=== PATIENT | female | born 1940 | race Caucasian/White ===

== ENCOUNTER 2017-01-23 04:39 | Inpatient (IN) ==
[2017-01-23] MEDS ORDERED: DILTIAZEM 50 MG/10 ML VIAL IV ONE (05:09)
[2017-01-23] MEDS ORDERED: FUROSEMIDE 100 MG/10 ML VIAL IV STA (05:16)
[2017-01-23] MEDS ORDERED: DILTIAZEM 50 MG/10 ML VIAL IV STA (05:16)
--- NOTE | 2017-01-23 05:22 | Emergency Department Note ---
Arrival - Arrival ED Nursing Triage Note: Patient to triage complaining of shortness of breath. Patient states that Dr. Gramajo gave her diltiazem she thinks that it has blue dye in it and caused a rash. She called Dr. Gramajo and he changed her medication to verapamil she states that she could not take it either because it made her feel bad. She states she does not take her lasix either because it is to hard on her body. Patient was fired by . She states she use to see DR. Celeste but has not seen him in a while. Mode of Arrival: Ambulatory Limitations: No Limitations Source: Patient - History of Present Illness Onset (ago): day(s) (Patient presents several days post insidious onset of symptoms) <Michael Matthews - Last Filed: 01/23/17 05:19> <Bill Green - Last Filed: 01/23/17 07:16> - Arrival Chief Complaint: Shortness of Breath Stated Complaint: sob, Time Seen by Provider: 01/23/17 05:16 - History of Present Illness HPI Narrative: This 76-year-old white female well-known to the institution with chronic atrial fibrillation and congestive failure presents with once again complaints of rapid heartbeat and shortness of breath. She has been in a continuous running lynch with Dr. Gramajo as concerns her medications and alleged drug allergies and inability to take medication. Basically she has not been compliant whatsoever and has fallen back into symptomatic congestive failure with tachyarrhythmias. She denies any chest pain in association with this. Despite her problems she appears quite comfortable at this point in time. (Michael Matthews) Allergies/Adverse Reactions: Allergies Allergy/AdvReac Type Severity Reaction Status Date / Time Penicillins Allergy RASH Verified 01/23/17 04:50 Hydromorphone [From Dilaudid] AdvReac Nausea Verified 01/23/17 04:50 Home Medications: Home Medications Medication Instructions Recorded Confirmed Type Apixaban [Eliquis] 5 mg PO BID #60 tablet 06/07/15 01/23/17 Rx Aspirin EC Tab 81 mg PO DAILY #30 tablet 06/07/15 01/23/17 Rx Furosemide Tab [Lasix Tab] 40 mg PO DAILY #30 tablet 06/07/15 01/23/17 Rx Metoprolol Tartrate Tab [Lopressor 25 mg PO BID #60 tablet 06/07/15 01/23/17 Rx Tab] Verapamil HCl [Verapamil ER Tab] 120 mg PO DAILY 01/23/17 01/23/17 History Review of System - Review of System 12 point system: reviewed and no additional remarkable complaints except as stated - Review of System Constitutional: Present: as per HPI Respiratory: Present: as per HPI Cardiovascular: Present: as per HPI <Michael Matthews W - Last Filed: 01/23/17 05:19> Medical,Surgical,& Family Hx - Medical History Cardio: History of: Cardiac Dysrhythmia (A-Fib), Hypertension Endocrine: No history of: Diabetes Mellitus (IDDM), Diabetes Mellitus (NIDDM) Respiratory: No history of: Asthma, Bronchitis, Pneumonia Renal: No history of: Renal Failure, Renal Problems Genitourinary: History of: Problems (uterine prolapse) Gastrointestinal: No history of: Diverticulitis/ Diverticulosis, Gastrointestinal Bleed, Liver Problems, GI Problems Reproductive: History of: Reproductive Problems (UTERINE PROLAPSE) - Surgical History Cardiac Surgeries: Patient Denies: Femoral-Popliteal Bypass Graft, Cardiac Catheterization, Cardiac Surgery, Carotid Endarterectomy, Internal Defibrillator, Vascular Access Devices Thoracic Surgeries: Patient denies;: Kidney (Renal Surgery), Lithotripsy, Nephrectomy, Organ Transplant, Lobectomy Neurologic Surgeries: Patient denies: Neurologic Surgery HEENT Surgeries: Patient denies: Carotid Endarterectomy, Eye Surgery, Tonsilectomy & Adenoidectomy Abdominal Surgeries: Patient denies: Abdominal Surgery, Appendectomy, Cholecystectomy, Colonoscopy , Gastric Bypass Surgery, EGD, Hernia Repair, Splenectomy Reproductive Surgeries: Patient denies;: Cystoscopy, Genitourinary Surgery, Gynecologic Surgery - Family History Family History: Reports;: Family Cancer (brother and sister), Family Heart Disease (mother) - Social History Smoking Status: Never smoker Frequency of Alcohol Use: None Type of Drug Use: None <Michael Matthews W - Last Filed: 01/23/17 05:19> Exam <Michael Matthews W - Last Filed: 01/23/17 05:19> <Bill Green - Last Filed: 01/23/17 07:16> Physical Examination: GENERAL: Well developed, well nourished elderly white female in no acute distress. HEENT: Normocephalic. No trauma. Moist mucous membranes. EOMI. PERRLA. ENT NML NECK: Supple. No adenopathy. CARDIAC: Irregular. No murmurs. Heart rate 141 CHEST: Clear to auscultation. No respiratory distress. O2 sat 96% ABDOMEN: Soft. Nontender. Active bowel sounds. EXTREMITIES: No trauma. Normal ROM. No pedal edema. SKIN: No diaphoresis. Papular red rash that resembles insect bite NEURO: Alert. Oriented 3. Motor, sensory, vibratory intact. No focal deficits. (Michael Matthews) Vital Signs: Vital Signs Temperature 96.5 F L 01/23/17 04:41 Pulse Rate 102 H 01/23/17 06:02 Respiratory Rate 11 L 01/23/17 06:02 Blood Pressure 156/112 01/23/17 06:02 O2 Sat by Pulse Oximetry 97 01/23/17 06:02 Course <Michael Matthews - Last Filed: 01/23/17 05:19> - Consultations Time: 07:05 <Bill Green - Last Filed: 01/23/17 07:16> Course Narrative: Care assumed from Dr. Matthews at 6 AM. (Bill Green) - Consultations Consultation #1: Discussed with Dr. Shepard. Patient will be admitted to his service. Initial orders written for him. He will assume patient's care upon patient's arrival to the [facility]. (Bill Green) Results <Michael Matthews - Last Filed: 01/23/17 05:19> - Labs CBC & BMP: 01/23/17 04:57 01/23/17 04:57 Lab Results: I have reviewed the patients labs - Diagnostic Findings Procedure: Chest x-ray: image reviewed by me (Cardiomegaly with increased pulmonary markings bilaterally consistent with congestive heart failure.) <Bill Green - Last Filed: 01/23/17 07:16> - Labs Labs: Laboratory Tests 01/23/17 01/23/17 04:57 04:57 Troponin I 0.385 H B-Natriuretic Peptide 758 H (Bill Green) - Impressions EKG atrial fibrillation with rapid ventricular response at 140. Normal QRS duration. Diffuse nonspecific ST changes with evidence of old septal infarct versus poor R-wave progression anteriorly. (Michael Matthews) Disposition <Michael Matthews - Last Filed: 01/23/17 05:19> Case discussed with: patient Time of Disposition: 07:16 <Bill Green - Last Filed: 01/23/17 07:16> Clinical Impression: Atrial fibrillation with RVR, Congestive heart failure, Noncompliance with medications Disposition: Still a Patient Condition: Stable
[2017-01-23 05:28] LABS: Basophils % 0.5 % (0.0-0.8); Eosinophils # 0.1 10*3/uL (0.0-0.87); Eosinophils % 1.5 % (0.00-10.9); Hematocrit 41.7 VOL% (35.7-47.0); Immature Granulocytes % 0.6 %; Immature Granulocytes Absolute 0.05 #; Lymphocytes % 24.8 % (21.3-54.2); Mean Corpuscular HGB Conc 33.6 GM/DL (32-36); Mean Corpuscular Hemoglobin 29 PG (27-34); Mean Corpuscular Volume 86.2 FL (87-102); Mean Platelet Volume 11.8 FL (9.6-12.0); Monocytes # 0.9 10*3/uL (0.11-0.8); Monocytes % 10.7 % (1.7-12.7); Neutrophils % 61.9 % (38.7-73.9); Platelet Count 258 T/CUMM (130-400); Red Blood Count 4.84 MC/CUMM (3.8-5.5); Red Cell Distribution Width 13.7 % (9.3-17.3)
[2017-01-23] MEDS ORDERED: FUROSEMIDE 40 MG/4 ML VIAL ONE (05:32)
[2017-01-23 05:38] LABS: INR 1.2; PT Patient Result 12.6 SECS; Partial Thromboplastin Time 31.9 SECS (0-40)
[2017-01-23 05:59] LABS: Alanine Aminotransferase 37 U/L (13-56); Albumin 3.9 G/DL (3.4-5.0); Alkaline Phosphatase 121 U/L (45-117); Aspartate Amino Transferase 42 U/L (0-37); Blood Urea Nitrogen 19 MG/DL (7-18); Calcium 8.9 MG/DL (8.5-10.1); Glucose 169 MG/DL (74-106); Osmolality,Calculated 278.8 MOS/KG (273-304); Potassium 4.6 MMOL/L (3.5-5.1); Sodium 137 MMOL/L (136-145); Total Protein 7.6 G/DL (6.4-8.3)
[2017-01-23 06:05] LABS: Troponin I Only 0.385 NG/ML (0.00-0.045)
--- NOTE | 2017-01-23 08:02 | EKG Report ---
Stationary ECG Study [facility] ER Test Date: 01/23/2017 4:53:53 AM Pat Name: HOA TORRES Department: Room: Gender: F Sports Physiologist: Sylvie : 1940 Requested by: Michael Olivia Order Number: [id number] Reading MD: JOSE ENG Intervals [place] Rate: 141 P: 999 GA: 0 QRS: -60 QRSD: 101 T: 88 QT: 286 QTc: 368 Interpretive Statements ATRIAL FIBRILLATION WITH RAPID VENTRICULAR RESPONSE At 141 bpm CONSISTENT WITH PULMONARY DISEASE LEFT ANTERIOR FASCICULAR BLOCK GA WP NST Electronically Signed On 01-27-17 15:52:17 CDT by JOSE ENG [email or web address]
--- NOTE | 2017-01-23 08:14 | XRay Report ---
XR chest 1V portable Indication: SOB Comparison: Chest x-ray dated June 05, 2015 Technique: Single frontal view of the chest Findings: Continued moderate to marked cardiomegaly. There is interval progressed prominence of bilateral interstitial lung markings which may reflect progressed interstitial lung disease, interstitial pulmonary edema, or interstitial pneumonia. Osseous and surrounding soft tissue structures appear grossly unchanged. IMPRESSION: As above. PROCEDURE INTERPRETED AT [facility] DEPARTMENT OF RADIOLOGY Final Report Signed by: Dr Regino De Jesus
[2017-01-23] MEDS: DILTIAZEM INJ 125 MG in SODIUM CHLORIDE 0.9% 100 ML IV SCH (08:25)
[2017-01-23] MEDS ORDERED: MAGNESIUM SULF RIDER 2 GM in PREMIX 1 EACH IV PRN (08:59)
[2017-01-23] MEDS ORDERED: SODIUM CHLORIDE 0.9% 1,000 ML IV SCH (08:59)
[2017-01-23] MEDS ORDERED: MAGNESIUM SULF RIDER 4 GM in PREMIX 1 EACH IV PRN (08:59)
[2017-01-23] MEDS ORDERED: ENOXAPARIN 40 MG/0.4 ML SYRINGE SUBCUT SCH (09:00)
--- NOTE | 2017-01-23 11:18 | Cardiology History & Physical ---
<Caitlyn Riley E - Last Filed: 01/23/17 12:14> Assessment and Plan - Time spent with patient Time spent with patient: Greater than 30 minutes (due to assessment, plan, lengthy discussion regarding complance with therapy, and documentation) (1) Atrial fibrillation with RVR Status: Acute Assessment and plan: SEE PLAN OF CARE BELOW. Current Visit: Yes (2) Shortness of breath Status: Acute Assessment and plan: SEE PLAN OF CARE BELOW. Current Visit: Yes (3) Hyperlipidemia Status: Chronic Assessment and plan: SEE PLAN OF CARE BELOW. Current Visit: Yes (4) Hypertension Status: Chronic Assessment and plan: SEE PLAN OF CARE BELOW. Current Visit: No (5) Noncompliance with medications Status: Chronic Assessment and plan: SEE PLAN OF CARE BELOW. Current Visit: Yes History of Present Illness Chief complaint: SOB History of present illness: ELECTRIC RANGE PREPARER: DR. COOPER PCP: DR. MONTES Ms. Garay is a 76 year old female with a history of chronic atrial fibrillation, cardiomyopathy, hypertension, hyperlipidemia, and medication noncompliance. Risk factors are significant for: age, sedentary lifestyle, hypertension, hyperlipidemia. She is a lifetime non-smoker and non-drinker. She is not followed routinely by Dr. Cooper and only sees him "when she feels bad." She is reportedly statin intolerant and has taken herself off of that medication as well as her Lasix that was prescribed to her. Ms. Garay presented to the emergency room this morning with complaints of shortness of breath that has worsened over the past week. She tells me this is worse with agitation and exertion. She sleeps propped on a wedge pillow at night. She also complains of frequent palpitations with her heart racing. She denies chest pain, diaphoresis, nausea, vomiting, diarrhea, or syncope. She does admit to recently feeling dizzy/lightheaded when she had been standing for long periods. She denies edema. She last saw Dr. Cooper in the clinic on 12/21/15 and at that time, he discussed recent echocardiogram results with her and recommended she have a right and left heart catheterization for her complaint of chest tightness and her pulmonary hypertension but she declined. Her echocardiogram on 12/11/15 revealed an EF of 55%, moderate tricuspid insufficiency, moderate to severe pulmonary hypertension, moderate mitral regurgitation, and atrial fibrillation with biatrial enlargement. She has been on Cardizem CD for quite some time and has recently called the clinic complaining of a rash she developed and thinks it was caused by the Diltiazem and requested a medication change. She was given a prescription for Verapamil but took 2 doses and reported "it made her feel bad, " so she stopped taking it. She has now not taken Diltiazem or verapamil for the past 3 weeks. She has been taking her Metoprolol BID but reports she sometimes takes a whole 25mg pill instead of the half that is prescribed if her heart rate is a little elevated. She also tells me she may occasionally take one of her daughter's doses of Lisinopril when her blood pressure goes up. She is also prescribed Eliquis 5mg PO BID but reports she can only take one daily due to vaginal prolapse with bleeding. Since she has been off of the diltiazem for the past 2 weeks, she has continued to have a mild rash with some itching. Her chest x-ray is suggestive of interstitial pulmonary edema vs progressive interstitial lung disease or interstitial pneumonia. She was given a dose of IV Lasix in the ER and her lungs actually sound fairly clear on exam. Her BNP was 758 upon admission with creatinine 1.3. Her troponin was also noted to be mildly elevated at 0.385 with CPK 208 and CK-MB 4.3. Dr. Shepard to follow with further plan and addendum. ASSESSMENT/PLAN: 1. ATRIAL FIBRILLATION W/ RVR - Has received bolus of IV cardizem in the ER. She has not taken her Diltiazem for 2 weeks. Will resume home dosage and continue to monitor. She is noted to have some minimally elevated cardiac biomarkers which could be due to her tachycardia but we will continue to cycle these and monitor for trend. 2. SHORTNESS OF BREATH - Likely related to her tachycardia and AF w/ RVR. 3. HYPERLIPIDEMIA - Will check lipid panel in AM. 4. HYPERTENSION - Will resume home medications and make adjustments as needed. Per her blood pressure log, her pressures have been consistently elevated for the past several weeks. Stressed the importance of follow up and adherence to medication regimen. 5. NONCOMPLIANCE WITH MEDICATIONS - Stressed the importance of compliance with medications prescribed by her physicians. Instructed her not to self-dose or change medication regimen without discussing with a physician. Counseled her on the potentially harmful effects of taking medications not prescribed to her. Home Medications Medication Instructions Recorded Confirmed Type Apixaban [Eliquis] 5 mg PO BID #60 tablet 06/07/15 01/23/17 Rx Aspirin EC Tab 81 mg PO DAILY #30 tablet 06/07/15 01/23/17 Rx Metoprolol Tartrate Tab [Lopressor 25 mg PO BID #60 tablet 06/07/15 01/23/17 Rx Tab] Verapamil HCl [Verapamil ER Tab] 120 mg PO DAILY 01/23/17 01/23/17 History dilTIAZem HCl [Diltiazem ER (24 120 mg PO DAILY 01/23/17 01/23/17 History hr)] Allergies Allergy/AdvReac Type Severity Reaction Status Date / Time Penicillins Allergy RASH Verified 01/23/17 04:50 Hydromorphone [From Dilaudid] AdvReac Nausea Verified 01/23/17 04:50 Review of systems: - Constitutional: Present: itching, As per HPI. Absent: anorexia, chills, daytime sleepiness, excessive sweating, fever(s), frequent falls, headache(s), increased appetite, lethargy, malaise, night sweats, stops breathing during sleep, weakness, weight gain, weight loss, fatigue. - EENT Eyes: Present: As per HPI. Absent: blurry vision, diplopia, loss of vision Ears: Present: As per HPI. Absent: decreased hearing, ear discharge, ear pain Nose, mouth and throat: Present: As per HPI. Absent: dysphagia, epistaxis, headache(s), hoarseness, lip swelling, nasal congestion, neck mass, neck pain, sinus pressure, sore throat, throat swelling, tongue swelling, vertigo - Cardiovascular: Present: dyspnea, dyspnea on exertion, orthopnea, palpitations , lightheadedness, as per HPI. Absent: chest pain at rest, chest pain with activity, edema, claudication, diaphoresis, radiating jaw, neck or arm pain, PND - Respiratory: Present: dyspnea, dyspnea on exertion, as per HPI. Absent: cough , hemoptysis, wheezing, snoring, pain on inspiration - Gastrointestinal: Present: constipation, hemorrhoids, As per HPI. Absent: abdominal pain, bloating, change in bowel habits, diarrhea, heartburn, hematemesis, hematochezia, loose stools, melena, nausea, vomiting - Genitourinary: Present: As per HPI. Absent: difficulty urinating, dysuria, flank pain, hematuria, nocturia, urinary frequency, urinary incontinence - Musculoskeletal: Present: low back pain, As per HPI. Absent: arthralgias, joint swelling, limited range of motion, muscle cramps, muscle weakness, myalgias - Neurological: Present: dizziness, As per HPI. Absent: abnormal gait, abnormal speech, behavioral changes, confusion, convulsions, disequilibrium, focal weakness, frequent falls, headache(s), memory loss, numbness, paresthesias, radicular pain, syncope, tremor(s) - Psychiatric: Present: As per HPI. Absent: anxiety, confusion, depression, panic attacks - Endocrine: Present: As per HPI. Absent: cold intolerance, fatigue, heat intolerance, polydipsia, polyphagia - Hematologic/Lymphatic: Present: As per HPI. Absent: easy bleeding, easy bruising, lymphadenopathy Medical,Surgical,& Family Hx - Medical History Cardio: History of: Cardiac Dysrhythmia (A-Fib), Hypertension Endocrine: No history of: Diabetes Mellitus (IDDM), Diabetes Mellitus (NIDDM) Respiratory: No history of: Asthma, Bronchitis, Pneumonia Renal: No history of: Renal Failure, Renal Problems Genitourinary: History of: Problems (uterine prolapse) Gastrointestinal: No history of: Diverticulitis/ Diverticulosis, Gastrointestinal Bleed, Liver Problems, GI Problems Reproductive: History of: Reproductive Problems (UTERINE PROLAPSE) - Surgical History Cardiac Surgeries: Patient Denies: Femoral-Popliteal Bypass Graft, Cardiac Catheterization, Cardiac Surgery, Carotid Endarterectomy, Internal Defibrillator, Vascular Access Devices Thoracic Surgeries: Patient denies;: Kidney (Renal Surgery), Lithotripsy, Nephrectomy, Organ Transplant, Lobectomy Neurologic Surgeries: Patient denies: Neurologic Surgery HEENT Surgeries: Patient denies: Carotid Endarterectomy, Eye Surgery, Tonsilectomy & Adenoidectomy Abdominal Surgeries: Patient denies: Abdominal Surgery, Appendectomy, Cholecystectomy, Colonoscopy , Gastric Bypass Surgery, EGD, Hernia Repair, Splenectomy Reproductive Surgeries: Patient denies;: Cystoscopy, Genitourinary Surgery, Gynecologic Surgery - Family History Family History: Reports;: Family Cancer (brother and sister), Family Heart Disease (mother) - Social History Smoking Status: Never smoker Frequency of Alcohol Use: None Type of Drug Use: None Marital Status: Lives With:: Children Functional capacity: independent ambulation Cardiology Physical Exam - Constitutional Vitals: Vital Signs Temp Pulse Resp BP Pulse Ox 96.8 F L 66 18 155/83 94 L 01/23/17 09:07 01/23/17 09:07 01/23/17 09:07 01/23/17 09:07 01/23/17 09:07 Intake and Output 01/22/17 01/23/17 01/23/17 22:59 06:59 14:59 Other: Weight 162 lb Patient Weight 01/24/17 06:59 Weight 162 lb Exam: General appearance: Pleasant and cooperative. Normal weight, no acute distress. - Head Head exam: Present: normal inspection, normocephalic, atraumatic. Absent: hematoma, laceration - Eye Eye exam: Present: EOMI. Absent: conjunctival injection, nystagmus, periorbital swelling, scleral icterus, laceration to eyelids Pupils: Present: PERRL. Absent: constricted, dilated, fixed, irregular, unequal - ENT ENT exam: Present: normal exam, normal external ear exam - Neck Neck exam: Present: normal inspection. Absent: lymphadenopathy, meningismus, tenderness, thyromegaly - Respiratory Respiratory exam: Present: clear to auscultation bilaterally. Absent: accessory muscle use, chest wall tenderness - Cardiovascular Cardiovascular exam: Present: Irregular rate and rhythm, tachycardia. Absent: carotid bruit, gallop, JVD, rubs, murmur - GI/Abdominal GI/Abdominal exam: Present: normal bowel sounds, soft. Absent: distended, firm , guarding, hernia, mass, tenderness, rebound. - Extremities Exam Extremities exam: Present: normal inspection, normal capillary refill. Upper extremity pulses 2+. Lower extremity pulses 2+. Absent: calf tenderness, edema -Musculoskeletal Exam Musculoskeletal: Present: No Fluid Collection, No Pain, Normal Range of Motion - Back Exam Back exam: Present: normal inspection. Absent: muscle spasm, vertebral tenderness - Neurological Exam Neurological exam: Present: alert, oriented X3, grossly intact without resting or essential tremor - Psychiatric Psychiatric exam: Present: normal affect, normal mood - Skin Skin exam: Present: normal color, warm, dry, intact, slight maculopapular rash to abdomen, buttocks, and back with few scabbed areas from repetitive scratching. Absent: cyanosis, diaphoretic, urticaria Result/EKG - Labs CBC & BMP: 01/23/17 04:57 01/23/17 04:57 Lab Results: I have reviewed the past 24 hour labs - EKG EKG results: interpreted by me EKG shows: atrial fibrillation (with rapid ventricular response) <Mike Shepard - Last Filed: 01/23/17 14:19> History of Present Illness History of present illness: Patient personally interviewed and examined and chart reviewed. I discussed this case with Caitlyn Riley SENIOR WATER RESOURCES ENGINEER. Agree with evaluation and assessment and plan. In summation in addition Ms. Garay is a 76 year old female who has a followed by Dr. Cooper previously. The patient's been noncompliant with follow-up and adjust her medicines according to her decisions and however she feels. She recently was placed on verapamil since she was complaining of itching that she thought was from the diltiazem. She took 2 doses of verapamil as already noted and thought she felt bad secondary to that. She did have a diltiazem to taking his place and now is presented with atrial fibrillation with RVR. She has chronic atrial fibrillation. She also has a history of cardiomyopathy. Much of her issues and problems as her noncompliance. At present we will adjust her medications to control her heart racing basically put her back on the diltiazem. Is obvious that the diltiazem is not the cause of her itching especially since she's been off of it is had no improvement. Once we have anticoagulation. Her heart rates managed she can be discharged to follow-up with Dr. Cooper. We will continue her anticoagulation. Her exam reveals no acute changes. Her lungs are clear, cardiovascular irregular but tachycardic. No gross murmur. She's got no edema. Neurologically she is intact. Cardiology Physical Exam - Constitutional Vitals: Vital Signs Temp Pulse Resp BP Pulse Ox 97 F L 113 H 20 142/88 94 L 01/23/17 11:41 01/23/17 12:19 01/23/17 11:41 01/23/17 12:00 01/23/17 11:41 Intake and Output 01/22/17 01/23/17 01/23/17 23:59 07:59 15:59 Other: Weight 73.482 kg Patient Weight 01/23/17 23:59 Weight 73.482 kg Result/EKG - Labs CBC & BMP: 01/23/17 04:57 01/23/17 04:57 Labs: Laboratory Results - last 24 hr 01/23/17 12:27 Total Creatine Kinase 170 CK-MB (CK-2) 4.0 H Troponin I 0.372 H
[2017-01-23] MEDS ORDERED: diphenhydrAMINE CAP 25 MG CAPSULE PO PRN (11:41)
[2017-01-23] MEDS ORDERED: HYDROCORTISONE 1% CREAM 28 GM TUBE TOP PRN (11:41)
[2017-01-23] MEDS ORDERED: POTASSIUM CHLORIDE 20 MEQ TABLET PO PRN (12:14)
[2017-01-23] MEDS: APIXABAN 5 MG TABLET PO SCH ×2 (12:18→20:31)
[2017-01-23] MEDS: METOPROLOL TARTRATE 25 MG TABLET PO SCH ×2 (12:18→20:31)
[2017-01-23] MEDS: ASPIRIN EC 81 MG TABLET PO SCH (12:18)
[2017-01-23] MEDS: DILTIAZEM CD 120 MG CAPSULE PO SCH (12:19)
[2017-01-23 13:13] LABS: Troponin I Only 0.372 NG/ML (0.00-0.045)
[2017-01-23 18:50] LABS: Troponin I Only 0.376 NG/ML (0.00-0.045)
[2017-01-24 01:06] LABS: Troponin I Only 0.386 NG/ML (0.00-0.045)
[2017-01-24] MEDS: DILTIAZEM INJ 125 MG in SODIUM CHLORIDE 0.9% 100 ML IV SCH (05:38)
[2017-01-24 06:03] LABS: Basophils # 0.1 10*3/uL (0.0-0.2); Basophils % 0.7 % (0.0-0.8); Eosinophils # 0.3 10*3/uL (0.0-0.87); Eosinophils % 3.5 % (0.00-10.9); Hematocrit 41.1 VOL% (35.7-47.0); Hemoglobin 13.5 GM/DL (12.0-16.0); Immature Granulocytes % 0.3 %; Immature Granulocytes Absolute 0.02 #; Lymphocytes # 1.7 10*3/uL (1.4-4.0); Lymphocytes % 23.1 % (21.3-54.2); Mean Corpuscular HGB Conc 32.8 GM/DL (32-36); Mean Corpuscular Hemoglobin 28 PG (27-34); Mean Corpuscular Volume 84.7 FL (87-102); Mean Platelet Volume 11.9 FL (9.6-12.0); Monocytes # 0.8 10*3/uL (0.11-0.8); Neutrophils # 4.4 10*3/uL (1.4-7.4); Neutrophils % 61.4 % (38.7-73.9); Platelet Count 252 T/CUMM (130-400); Red Blood Count 4.85 MC/CUMM (3.8-5.5); Red Cell Distribution Width 13.6 % (9.3-17.3); White Blood Count 7.2 T/CUMM (4-12)
[2017-01-24 06:32] LABS: Calcium 8.6 MG/DL (8.5-10.1); Magnesium 2.3 MG/DL (1.8-2.4); Osmolality,Calculated 280.5 MOS/KG (273-304); Potassium 3.7 MMOL/L (3.5-5.1); Risk Ratio 5.05; VLDL CHOLESTEROL 24.2 MG/DL
--- NOTE | 2017-01-24 09:07 | Physician Query Form ---
CLICK EDIT DOCUMENT TO SELECT QUERY ANSWER --> OK --> SIGN Danielle Springer RN Clinical Appliance Sales Associate W) [phone] (f) [phone] [email or web address] PROVIDERS: Make your selection(s) from the choices in EACH section by typing an "x" and enter comments in the comment section. Please use your independent medical judgment in providing your response. This request does not imply that any particular answer is desired or expected. CLINICAL INDICATORS: (Providers should not edit this section) Based on documentation of "CHF. Her echocardiogram on 12/11/15 revealed an EF of 55%", [id number], treated with IV Lasix. Please provide further specificity regarding CHF. ACUITY: ( ) Acute ( ) Chronic ( ) Acute on Chronic ( ) Clinicallly unable to determine TYPE: ( ) Systolic (HFrEF - heart failure with reduced systolic function/EF) ( ) Diastolic (HFpEF - heart failure with preserved systolic function/EF) ( ) Combined Systolic/Diastolic ( ) Other, please specify: ( ) Clinically unable to determine ( ) The patient does NOT have CHF COMMENTS: No where in my H&P or progress notes was "CHF" a documented diagnosis. I'm unsure why I'm receiving this query. -Caitlyn Riley, WATER/WASTEWATER PROJECT MANAGER-BC Use of terms such as suspected, likely, or probable (associated with a specific diagnosis that is being evaluated, monitored, or treated as if it exists) are acceptable and can be restated in the discharge summary if not ruled out. MTDD
[2017-01-24] MEDS: DILTIAZEM CD 120 MG CAPSULE PO SCH (09:29)
[2017-01-24] MEDS: ASPIRIN EC 81 MG TABLET PO SCH (09:29)
[2017-01-24] MEDS: METOPROLOL TARTRATE 25 MG TABLET PO SCH (09:30)
[2017-01-24] MEDS: APIXABAN 5 MG TABLET PO SCH (09:30)
--- NOTE | 2017-01-24 11:16 | Cardiology Progress Note ---
<Caitlyn Riley E - Last Filed: 01/24/17 10:59> Assessment and Plan - Time spent with patient Time spent with patient: Greater than 30 minutes (due to discussion regarding medication changes, compliance, assessment, plan, and documentation) (1) Atrial fibrillation with RVR Status: Acute Assessment and plan: SEE PLAN OF CARE BELOW. Current Visit: Yes (2) Shortness of breath Status: Acute Assessment and plan: SEE PLAN OF CARE BELOW. Current Visit: Yes (3) Hyperlipidemia Status: Chronic Assessment and plan: SEE PLAN OF CARE BELOW. Current Visit: Yes (4) Hypertension Status: Chronic Assessment and plan: SEE PLAN OF CARE BELOW. Current Visit: No (5) Noncompliance with medications Status: Chronic Assessment and plan: SEE PLAN OF CARE BELOW. Current Visit: Yes Cardiology - PN: Subj Interval history: DERMATOLOGY PHYSICIAN: DR. COOPER PCP: DR. MONTES Ms. Garay is a 76 year old female with a history of chronic atrial fibrillation, cardiomyopathy, hypertension, hyperlipidemia, and medication noncompliance. Risk factors are significant for: age, sedentary lifestyle, hypertension, hyperlipidemia. She is a lifetime non-smoker and non-drinker. She is not followed routinely by Dr. Cooper and only sees him "when she feels bad." She is reportedly statin intolerant and has taken herself off of that medication as well as her Lasix that was prescribed to her. Ms. Garay presented to the emergency room on 01/23/17 with complaints of shortness of breath that has worsened over the past week. She was found to be in atrial fibrillation with rapid ventricular response. Clinically, she does not appear to be in overt heart failure. She has been on Diltiazem and Metoprolol for her chronic afib for quite some time and adjusts her medications at home herself as she sees fit and according to how she feels. She was recently changed to Verapamil after calling the clinic reporting a rash she thought was caused by the Diltiazem. I do not think this has caused her rash as she has not taken it in the past 2 weeks and her itching has not improved. We have started her on some hydrocortisone cream for this and placed her back on diltiazem. We increased her metoprolol dose to 25mg PO BID as well. She continues to have elevated heart rates on these medications. She is very anxious to go home, but I explained to her we needed to have her heart rate under better control. She does have an appointment with Dr. Cooper on 01/30/17 and I stressed to her the importance of keeping this appointment and not adjusting her medications or stopping her medications herself. She states "I'll try." Dr. Shepard to follow with further plan and addendum. ASSESSMENT/PLAN: 1. ATRIAL FIBRILLATION W/ RVR -She has been started back on her Diltiazem and metoprolol. Her rates remain slightly above normal range. We will adjust her medications and try to better control her heart rate. 2. SHORTNESS OF BREATH - Likely related to her tachycardia and AF w/ RVR. She has had some flat troponins. Her SOB is likely related to her AF w/ RVR and not ACS. 3. HYPERLIPIDEMIA - Triglycerides 121, cholesterol 197, LDL 149, HDL 39. 4. HYPERTENSION -Her home medications have been resumed. She has had several elevated blood pressures and we will adjust her medications to better control this. Per her blood pressure log, her pressures have been consistently elevated for the past several weeks. Stressed the importance of follow up and adherence to medication regimen. 5. NONCOMPLIANCE WITH MEDICATIONS - Stressed the importance of compliance with medications prescribed by her physicians. Instructed her not to self-dose or change medication regimen without discussing with a physician. Counseled her on the potentially harmful effects of taking medications not prescribed to her. Exam (Progress Note) - Constitutional Vitals: Period Temp Pulse Resp BP Sys/Bradley Pulse Ox Last 24 Hr 97 F-98.2 F 66-120 16-21 126-191/67-93 93-100 Exam: General appearance: Pleasant and cooperative. Normal weight, no acute distress. - Head Head exam: Present: normal inspection, normocephalic, atraumatic. Absent: hematoma, laceration - Eye Eye exam: Present: EOMI. Absent: conjunctival injection, nystagmus, periorbital swelling, scleral icterus, laceration to eyelids Pupils: Present: PERRL. Absent: constricted, dilated, fixed, irregular, unequal - ENT ENT exam: Present: normal exam, normal external ear exam - Neck Neck exam: Present: normal inspection. Absent: lymphadenopathy, meningismus, tenderness, thyromegaly - Respiratory Respiratory exam: Present: clear to auscultation bilaterally. Absent: accessory muscle use, chest wall tenderness - Cardiovascular Cardiovascular exam: Present: Irregular rate and rhythm, tachycardia. Absent: carotid bruit, gallop, JVD, rubs, murmur - GI/Abdominal GI/Abdominal exam: Present: normal bowel sounds, soft. Absent: distended, firm , guarding, hernia, mass, tenderness, rebound. - Extremities Exam Extremities exam: Present: normal inspection, normal capillary refill. Upper extremity pulses 2+. Lower extremity pulses 2+. Absent: calf tenderness, edema -Musculoskeletal Exam Musculoskeletal: Present: No Fluid Collection, No Pain, Normal Range of Motion - Back Exam Back exam: Present: normal inspection. Absent: muscle spasm, vertebral tenderness - Neurological Exam Neurological exam: Present: alert, oriented X3, grossly intact without resting or essential tremor - Psychiatric Psychiatric exam: Present: normal affect, normal mood - Skin Skin exam: Present: normal color, warm, dry, intact, slight maculopapular rash to abdomen, buttocks, and back with few scabbed areas from repetitive scratching. Absent: cyanosis, diaphoretic, urticaria Result/EKG - Labs CBC & BMP: 01/24/17 05:02 01/24/17 05:02 Lab Results: I have reviewed the past 24 hour labs Labs: Laboratory Results - last 24 hr 01/23/17 01/23/17 01/24/17 12:27 18:00 00:24 WBC RBC Hgb Hct MCV MCH MCHC RDW Plt Count MPV Neut % (Auto) Lymph % (Auto) [place] % (Auto) Eos % (Auto) Baso % (Auto) Neut # (Auto) Lymph # (Auto) [place] # (Auto) Eos # (Auto) Baso # (Auto) Immature Gran % Nucleated RBC % Immature Gran # Nucleated RBCs # Sodium Potassium Chloride Carbon Dioxide Anion Gap BUN Creatinine GFR Calculation BUN/Creatinine Ratio Glucose Calculated Osmolality Calcium Magnesium Total Creatine Kinase 170 166 171 CK-MB (CK-2) 4.0 H 3.4 3.4 Troponin I 0.372 H 0.376 H 0.386 H Triglycerides Cholesterol LDL Cholesterol VLDL Cholesterol HDL Cholesterol Heart Disease Risk Ratio 01/24/17 01/24/17 05:02 05:02 WBC 7.2 RBC 4.85 Hgb 13.5 Hct 41.1 MCV 84.7 L MCH 28 MCHC 32.8 RDW 13.6 Plt Count 252 MPV 11.9 Neut % (Auto) 61.4 Lymph % (Auto) 23.1 [place] % (Auto) 11.0 Eos % (Auto) 3.5 Baso % (Auto) 0.7 Neut # (Auto) 4.4 Lymph # (Auto) 1.7 [place] # (Auto) 0.8 Eos # (Auto) 0.3 Baso # (Auto) 0.1 Immature Gran % 0.3 Nucleated RBC % 0.0 Immature Gran # 0.02 Nucleated RBCs # 0.00 Sodium 139 Potassium 3.7 Chloride 101 Carbon Dioxide 27 Anion Gap 14.7 BUN 21 H Creatinine 1.20 H GFR Calculation 44 BUN/Creatinine Ratio 17.00 Glucose 121 H Calculated Osmolality 280.5 Calcium 8.6 Magnesium 2.3 Total Creatine Kinase CK-MB (CK-2) Troponin I Triglycerides 121 Cholesterol 197 LDL Cholesterol 149.0 VLDL Cholesterol 24.2 HDL Cholesterol 39 L Heart Disease Risk Ratio 5.05 - EKG EKG results: interpreted by me EKG shows: atrial fibrillation <Mike Shepard Lemuel - Last Filed: 01/24/17 14:15> Cardiology - PN: Subj Interval history: Patient personally interviewed and examined and chart reviewed. I discussed his case with Caitlyn Riley NP [employer]. I agree with the assessment and evaluation and plan. The patient is wanting to go home and demands actually to go home. She is really doing well her heart rates are adequately controlled. We will continue her present medications as she has an appointment already with Dr. Gramajo on the which she says she will keep. I think in light of this we will go ahead and discharge the patient. Please see the discharge summary. Exam (Progress Note) - Constitutional Vitals: Period Temp Pulse Resp BP Sys/Bradley Pulse Ox Last 24 Hr 97 F-98.2 F 66-120 16-21 113-151/67-93 93-100 Result/EKG - Labs CBC & BMP: 01/24/17 05:02 01/24/17 05:02 Labs: Laboratory Results - last 24 hr 01/23/17 01/24/17 01/24/17 18:00 00:24 05:02 WBC 7.2 RBC 4.85 Hgb 13.5 Hct 41.1 MCV 84.7 L MCH 28 MCHC 32.8 RDW 13.6 Plt Count 252 MPV 11.9 Neut % (Auto) 61.4 Lymph % (Auto) 23.1 [place] % (Auto) 11.0 Eos % (Auto) 3.5 Baso % (Auto) 0.7 Neut # (Auto) 4.4 Lymph # (Auto) 1.7 [place] # (Auto) 0.8 Eos # (Auto) 0.3 Baso # (Auto) 0.1 Immature Gran % 0.3 Nucleated RBC % 0.0 Immature Gran # 0.02 Nucleated RBCs # 0.00 Sodium Potassium Chloride Carbon Dioxide Anion Gap BUN Creatinine GFR Calculation BUN/Creatinine Ratio Glucose Calculated Osmolality Calcium Magnesium Total Creatine Kinase 166 171 CK-MB (CK-2) 3.4 3.4 Troponin I 0.376 H 0.386 H Triglycerides Cholesterol LDL Cholesterol VLDL Cholesterol HDL Cholesterol Heart Disease Risk Ratio 01/24/17 05:02 WBC RBC Hgb Hct MCV MCH MCHC RDW Plt Count MPV Neut % (Auto) Lymph % (Auto) [place] % (Auto) Eos % (Auto) Baso % (Auto) Neut # (Auto) Lymph # (Auto) [place] # (Auto) Eos # (Auto) Baso # (Auto) Immature Gran % Nucleated RBC % Immature Gran # Nucleated RBCs # Sodium 139 Potassium 3.7 Chloride 101 Carbon Dioxide 27 Anion Gap 14.7 BUN 21 H Creatinine 1.20 H GFR Calculation 44 BUN/Creatinine Ratio 17.00 Glucose 121 H Calculated Osmolality 280.5 Calcium 8.6 Magnesium 2.3 Total Creatine Kinase CK-MB (CK-2) Troponin I Triglycerides 121 Cholesterol 197 LDL Cholesterol 149.0 VLDL Cholesterol 24.2 HDL Cholesterol 39 L Heart Disease Risk Ratio 5.05
[2017-01-24 12:03] VITALS: BP 113/73
--- NOTE | 2017-01-24 14:18 | Discharge Summary ---
Hospital Course - Hospital Course Hospital Course: Patient has a long history of noncompliance both with follow-up and medications. She takes the medicine she wants to or does not want to. She recently ran out of her diltiazem but had complained that she felt was causing itching and called Dr. Gramajo's office and they placed on verapamil. She did not like this medication thought it made her feel funny and stopped it. She did not have any diltiazem so she presented to the emergency room with her chronic atrial fibrillation with RVR. At present her heart rates are well managed and she is demanding to go home. She is certainly stable and has an appointment to see Dr. Gramajo on January 30. We will discharge the patient to continue her present medications. - Time spent with patient Time with patient DS: Greater than 30 minutes Diagnosis - Discharge Diagnosis (1) Atrial fibrillation with RVR Status: Acute (2) Shortness of breath Status: Resolved (3) Hyperlipidemia Status: Chronic (4) Noncompliance with medications Status: Chronic (5) Hypertension Status: Chronic Discharge Plan - Discharge Data Disposition: Disch To Home/Self Care Condition at Discharge: Stable Discharge Diet: heart healthy Activity: resume usual activities as tolerated Hygiene: no restrictions Weight Bearing at Discharge: full weight bearing Driving: no restrictions Contact your physician if you experience:: Shortness of breath - Discharge Medications New Diltiazem Cd Cap [Cardizem CD] 120 mg PO DAILY #30 tablet Metoprolol Tartrate Tab [Lopressor Tab] 50 mg PO BID #60 tablet Hydrocortisone 1% Cream 1 applic TOP TID PRN #1 applic PRN Reason: Itching Continue Aspirin EC Tab 81 mg PO DAILY #30 tablet Apixaban [Eliquis] 5 mg PO BID #60 tablet dilTIAZem HCl [Diltiazem ER (24 hr)] 120 mg PO DAILY #30 Discontinued Metoprolol Tartrate Tab [Lopressor Tab] 25 mg PO BID #60 tablet Verapamil HCl [Verapamil ER Tab] 120 mg PO DAILY - Follow Up or Referral Follow Up: Dipti Gordillo DO [Physician] - (Patient to keep her follow with Dr. Gramajo January.) - Forms/Instructions Exam - Constitutional Vitals: Period Temp Pulse Resp BP Sys/Bradley Pulse Ox Last 24 Hr 97 F-98.2 F 66-120 16-21 113-151/67-93 93-100 Exam: General appearance: Pleasant and cooperative. Normal weight, no acute distress. - Head Head exam: Present: normal inspection, normocephalic, atraumatic. Absent: hematoma, laceration - Eye Eye exam: Present: EOMI. Absent: conjunctival injection, nystagmus, periorbital swelling, scleral icterus, laceration to eyelids Pupils: Present: PERRL. Absent: constricted, dilated, fixed, irregular, unequal - ENT ENT exam: Present: normal exam, normal external ear exam - Neck Neck exam: Present: normal inspection. Absent: lymphadenopathy, meningismus, tenderness, thyromegaly - Respiratory Respiratory exam: Present: clear to auscultation bilaterally. Absent: accessory muscle use, chest wall tenderness - Cardiovascular Cardiovascular exam: Present: Irregular rate and rhythm. Absent: carotid bruit , gallop, JVD, rubs, murmur - GI/Abdominal GI/Abdominal exam: Present: normal bowel sounds, soft. Absent: distended, firm , guarding, hernia, mass, tenderness, rebound. - Extremities Exam Extremities exam: Present: normal inspection, normal capillary refill. Upper extremity pulses 2+. Lower extremity pulses 2+. Absent: calf tenderness, edema -Musculoskeletal Exam Musculoskeletal: Present: No Fluid Collection, No Pain, Normal Range of Motion - Back Exam Back exam: Present: normal inspection. Absent: muscle spasm, vertebral tenderness - Neurological Exam Neurological exam: Present: alert, oriented X3, grossly intact without resting or essential tremor - Psychiatric Psychiatric exam: Present: normal affect, normal mood - Skin Skin exam: Present: normal color, warm, dry, intact, slight maculopapular rash to abdomen, buttocks, and back with few scabbed areas from repetitive scratching. Absent: cyanosis, diaphoretic, urticaria Discharge Results Procedures and tests throughout hospitalization: Pending Orders 01/25/17 04:00 BMP w/ Mg [Basic Metabolic Panel w/Mg] IN AM CBC [Comp Blood Count Auto Diff] IN AM 01/26/17 04:00 BMP w/ Mg [Basic Metabolic Panel w/Mg] IN AM CBC [Comp Blood Count Auto Diff] IN AM 01/27/17 04:00 BMP w/ Mg [Basic Metabolic Panel w/Mg] IN AM CBC [Comp Blood Count Auto Diff] IN AM Labs on day of discharge: Labs from last 24 hours 01/24/17 01/24/17 01/24/17 05:02 05:02 00:24 WBC 7.2 RBC 4.85 Hgb 13.5 Hct 41.1 MCV 84.7 L MCH 28 MCHC 32.8 RDW 13.6 Plt Count 252 MPV 11.9 Neut % (Auto) 61.4 Lymph % (Auto) 23.1 [place] % (Auto) 11.0 Eos % (Auto) 3.5 Baso % (Auto) 0.7 Neut # (Auto) 4.4 Lymph # (Auto) 1.7 [place] # (Auto) 0.8 Eos # (Auto) 0.3 Baso # (Auto) 0.1 Immature Gran % 0.3 Nucleated RBC % 0.0 Immature Gran # 0.02 Nucleated RBCs # 0.00 Sodium 139 Potassium 3.7 Chloride 101 Carbon Dioxide 27 Anion Gap 14.7 BUN 21 H Creatinine 1.20 H GFR Calculation 44 BUN/Creatinine Ratio 17.00 Glucose 121 H Calculated Osmolality 280.5 Calcium 8.6 Magnesium 2.3 Total Creatine Kinase 171 CK-MB (CK-2) 3.4 Troponin I 0.386 H Triglycerides 121 Cholesterol 197 LDL Cholesterol 149.0 VLDL Cholesterol 24.2 HDL Cholesterol 39 L Heart Disease Risk Ratio 5.05 01/23/17 18:00 WBC RBC Hgb Hct MCV MCH MCHC RDW Plt Count MPV Neut % (Auto) Lymph % (Auto) [place] % (Auto) Eos % (Auto) Baso % (Auto) Neut # (Auto) Lymph # (Auto) [place] # (Auto) Eos # (Auto) Baso # (Auto) Immature Gran % Nucleated RBC % Immature Gran # Nucleated RBCs # Sodium Potassium Chloride Carbon Dioxide Anion Gap BUN Creatinine GFR Calculation BUN/Creatinine Ratio Glucose Calculated Osmolality Calcium Magnesium Total Creatine Kinase 166 CK-MB (CK-2) 3.4 Troponin I 0.376 H Triglycerides Cholesterol LDL Cholesterol VLDL Cholesterol HDL Cholesterol Heart Disease Risk Ratio DS: Provider Date of admission: 01/23/17 07:13 Primary care physician: Pa Celeste MD Attending physician on admission: Cornell Nagel Discharging clinician: Cornell Nagel Expected date of discharge: 01/24/17
[2017-01-24] MEDS ORDERED: METOPROLOL TARTRATE 50 MG TABLET PO SCH (21:00)
== END 2017-01-24 16:14 | disposition home or self-care (01) | DRG 310 ==
LOC: N.ED 04:39 → N.EDINP 07:13 → N.TELES 07:39
PROVIDERS: ADMIT Internal Medicine Cardiovascular Disease; ATTEND Internal Medicine Cardiovascular Disease

== ENCOUNTER 2018-03-15 19:29 | Observation (INO) ==
[2018-03-15] MEDS ORDERED: METOPROLOL TARTRATE 5 MG/5 ML VIAL IV STA (20:36)
[2018-03-15 21:06] LABS: Basophils # 0.1 10*3/uL (0.0-0.2); Basophils % 0.8 % (0.0-0.8); Eosinophils # 0.2 10*3/uL (0.0-0.87); Eosinophils % 2.9 % (0.00-10.9); Hematocrit 40.1 VOL% (35.7-47.0); Hemoglobin 13.2 GM/DL (12.0-16.0); Immature Granulocytes % 0.5 %; Immature Granulocytes Absolute 0.03 #; Lymphocytes # 1.2 10*3/uL (1.4-4.0); Lymphocytes % 18.9 % (21.3-54.2); Mean Corpuscular HGB Conc 32.9 GM/DL (32-36); Mean Corpuscular Hemoglobin 29 PG (27-34); Mean Corpuscular Volume 87.6 FL (87-102); Mean Platelet Volume 10.7 FL (9.6-12.0); Monocytes # 0.6 10*3/uL (0.11-0.8); Monocytes % 9.6 % (1.7-12.7); Neutrophils # 4.1 10*3/uL (1.4-7.4); Neutrophils % 67.3 % (38.7-73.9); Platelet Count 253 T/CUMM (130-400); Red Blood Count 4.58 MC/CUMM (3.8-5.5); Red Cell Distribution Width 14.4 % (9.3-17.3); White Blood Count 6.1 T/CUMM (4-12)
[2018-03-15] MEDS ORDERED: ONDANSETRON 4 MG/2 ML VIAL IV ONE (21:17)
[2018-03-15] MEDS ORDERED: MORPHINE 4 MG/1 ML VIAL IM STA (21:17)
[2018-03-15 21:26] LABS: Albumin 3.4 G/DL (3.4-5.0); Bilirubin,Total 0.6 MG/DL (0.2-1.0); Calcium 8.7 MG/DL (8.5-10.1); Osmolality,Calculated 286.1 MOS/KG (273-304); Potassium 3.4 MMOL/L (3.5-5.1); Total Protein 7.4 G/DL (6.4-8.3)
[2018-03-15] MEDS ORDERED: MORPHINE 4 MG/1 ML VIAL IV STA (21:48)
[2018-03-15] MEDS ORDERED: NITROGLYCERIN SL 0.4 MG TABLET SL STA (21:57)
[2018-03-15] MEDS ORDERED: KETOROLAC 30 MG/1 ML VIAL IV STA (23:27)
[2018-03-15] MEDS ORDERED: DILTIAZEM INJ 100 MG in SODIUM CHLORIDE 0.9% 100 ML IV SCH (23:30)
[2018-03-15] MEDS ORDERED: ONDANSETRON 4 MG/2 ML VIAL IV PRN (23:44)
[2018-03-15] MEDS ORDERED: GLUCAGON 1 MG VIAL IM PRN (23:44)
[2018-03-15] MEDS ORDERED: DEXTROSE 50% 25 GM/50 ML VIAL IV PRN (23:44)
[2018-03-16 01:07] LABS: Basophils % 0.6 % (0.0-0.8); Eosinophils # 0.1 10*3/uL (0.0-0.87); Eosinophils % 1.6 % (0.00-10.9); Hematocrit 38.3 VOL% (35.7-47.0); Hemoglobin 12.4 GM/DL (12.0-16.0); Immature Granulocytes % 0.4 %; Immature Granulocytes Absolute 0.03 #; Lymphocytes % 14.1 % (21.3-54.2); Mean Corpuscular HGB Conc 32.4 GM/DL (32-36); Mean Corpuscular Hemoglobin 28 PG (27-34); Mean Corpuscular Volume 87.8 FL (87-102); Mean Platelet Volume 10.7 FL (9.6-12.0); Monocytes # 0.6 10*3/uL (0.11-0.8); Neutrophils # 5.3 10*3/uL (1.4-7.4); Neutrophils % 75.3 % (38.7-73.9); Platelet Count 253 T/CUMM (130-400); Red Blood Count 4.36 MC/CUMM (3.8-5.5); Red Cell Distribution Width 14.2 % (9.3-17.3)
[2018-03-16] MEDS ORDERED: APIXABAN 5 MG TABLET PO ONE (01:18)
[2018-03-16] MEDS ORDERED: DILTIAZEM 60 MG TABLET PO ONE (01:22)
[2018-03-16 01:32] LABS: Calcium 8.5 MG/DL (8.5-10.1); Osmolality,Calculated 283.4 MOS/KG (273-304); Potassium 3.6 MMOL/L (3.5-5.1); Thyroid Stimulating Hormone 3.38 uIU/ml (0.358-3.74)
[2018-03-16 03:24] LABS: INR 1.1; PT Patient Result 11.4 SECS
[2018-03-16] MEDS ORDERED: POTASSIUM CHLORIDE 10 MEQ TABLET PO SCH (09:00)
[2018-03-16] MEDS: DILTIAZEM CD 120 MG CAPSULE PO SCH (09:28)
[2018-03-16] MEDS: FUROSEMIDE 20 MG TABLET PO SCH (09:29)
[2018-03-16] MEDS: ASPIRIN EC 81 MG TABLET PO SCH (09:31)
[2018-03-16] MEDS: APIXABAN 5 MG TABLET PO SCH ×3 (09:32→23:38)
[2018-03-16] MEDS: METOPROLOL TARTRATE 25 MG TABLET PO SCH ×2 (09:33→20:10)
[2018-03-16] MEDS: PANTOPRAZOLE 40 MG TABLET PO SCH (09:33)
[2018-03-16] MEDS ORDERED: POTASSIUM CHLORIDE 20 MEQ TABLET PO SCH (10:14)
[2018-03-16] MEDS: ACETAMINOPHEN 325 MG TABLET PO PRN (23:30)
[2018-03-17] MEDS: ACETAMINOPHEN 325 MG TABLET PO PRN (04:33)
[2018-03-17] MEDS: DILTIAZEM CD 120 MG CAPSULE PO SCH (08:27)
[2018-03-17] MEDS: APIXABAN 5 MG TABLET PO SCH (08:28)
[2018-03-17] MEDS: METOPROLOL TARTRATE 25 MG TABLET PO SCH (08:28)
[2018-03-17] MEDS: ASPIRIN EC 81 MG TABLET PO SCH (08:28)
[2018-03-17] MEDS: PANTOPRAZOLE 40 MG TABLET PO SCH (08:29)
[2018-03-17] MEDS: FUROSEMIDE 20 MG TABLET PO SCH (08:30)
[2018-03-17 13:10] VITALS: BP 135/86
== END 2018-03-17 12:34 | disposition home or self-care (01) ==
LOC: N.ED 19:29 → N.EDINP 19:29 → N.TELEN 03-16 00:13

== ENCOUNTER 2018-11-23 11:10 | Inpatient (IN) ==
[2018-11-23] MEDS ORDERED: DILTIAZEM 50 MG/10 ML VIAL IV STA (11:58)
[2018-11-23] MEDS ORDERED: MORPHINE 4 MG/1 ML VIAL IV STA (11:58)
[2018-11-23] MEDS ORDERED: methylPREDNISolone SOD SUC 125 MG/2 ML VIAL IV STA (11:58)
[2018-11-23] MEDS ORDERED: FUROSEMIDE 100 MG/10 ML VIAL IV STA (11:58)
[2018-11-23] MEDS ORDERED: ONDANSETRON 4 MG/2 ML VIAL IV STA (11:58)
[2018-11-23 12:28] LABS: Basophils % 0.6 % (0.0-0.8); Eosinophils # 0.1 10*3/uL (0.0-0.87); Eosinophils % 1.4 % (0.00-10.9); Hematocrit 39.5 VOL% (35.7-47.0); Immature Granulocytes % 0.3 %; Immature Granulocytes Absolute 0.02 #; Lymphocytes # 0.9 10*3/uL (1.4-4.0); Lymphocytes % 14.1 % (21.3-54.2); Mean Corpuscular HGB Conc 30.4 GM/DL (32-36); Mean Corpuscular Hemoglobin 25 PG (27-34); Mean Corpuscular Volume 81.8 FL (87-102); Mean Platelet Volume 10.8 FL (9.6-12.0); Monocytes # 0.7 10*3/uL (0.11-0.8); Monocytes % 10.3 % (1.7-12.7); Neutrophils # 4.7 10*3/uL (1.4-7.4); Neutrophils % 73.3 % (38.7-73.9); Platelet Count 270 T/CUMM (130-400); Red Blood Count 4.83 MC/CUMM (3.8-5.5); Red Cell Distribution Width 15.9 % (9.3-17.3); White Blood Count 6.4 T/CUMM (4-12)
[2018-11-23 12:47] LABS: PT Patient Result 11.3 SECS
[2018-11-23] MEDS: dilTIAZem Drip 125 MG/125 ML PREMIX IV SCH (12:48)
[2018-11-23 12:50] LABS: Albumin 3.7 G/DL (3.4-5.0); Bilirubin,Total 0.6 MG/DL (0.2-1.0); Calcium 8.8 MG/DL (8.5-10.1); Osmolality,Calculated 279.5 MOS/KG (273-304); Potassium 3.9 MMOL/L (3.5-5.1); Total Protein 7.6 G/DL (6.4-8.3)
[2018-11-23] MEDS ORDERED: ACETAMINOPHEN 325 MG TABLET PO PRN (14:43)
[2018-11-23] MEDS ORDERED: ONDANSETRON 4 MG/2 ML VIAL IV PRN (14:43)
[2018-11-23] MEDS ORDERED: DOCUSATE SODIUM 100 MG CAPSULE PO PRN (14:43)
[2018-11-23] MEDS ORDERED: FUROSEMIDE 20 MG TABLET PO PRN (14:50)
[2018-11-23] MEDS ORDERED: POTASSIUM CHLORIDE 10 MEQ TABLET PO PRN (14:50)
[2018-11-23 15:14] LABS: Risk Ratio 4.41; Thyroid Stimulating Hormone 2.59 uIU/ml (0.358-3.74); VLDL CHOLESTEROL 22.6 MG/DL
[2018-11-23 19:28] LABS: Apearance,Urine Slightly Hazy (Clear); Bacteria,Urine Occasional /HPF (Few); Bilirubin,Urine Negative (Negative); Blood, Urine Small mg/dL (Negative); Glucose,Urine (UA) 50 mg/dL (Negative); Hyaline Casts,Urine 8 /LPF (0-3); Ketones,Urine Negative (Negative); Mucus,Urine Occasional /LPF (Occasional); Nitrite,Urine Negative (Negative); Protein,Urine 30 MG/DL; RBC,Urine 7 /HPF (0-4); Squamous Epithelial Cell,Urine Occasional /HPF (0-10); Urine Color Yellow (Yellow); Urine Specific Gravity 1.012 (1.001-1.035); Urine Urobilinogen < 2.0 EU/DL (0.2-1.0); WBC,Urine 6 /HPF (0-6)
[2018-11-23] MEDS: HYDROCORTISONE 0.5% CREAM 28.35 GM TUBE TOP PRN (22:55)
[2018-11-24 02:36] LABS: Basophils # 0.1 10*3/uL (0.0-0.2); Basophils % 0.8 % (0.0-0.8); Eosinophils # 0.2 10*3/uL (0.0-0.87); Eosinophils % 2.6 % (0.00-10.9); Hematocrit 37.5 VOL% (35.7-47.0); Hemoglobin 11.3 GM/DL (12.0-16.0); Immature Granulocytes % 0.6 %; Immature Granulocytes Absolute 0.04 #; Lymphocytes # 1.3 10*3/uL (1.4-4.0); Lymphocytes % 19.7 % (21.3-54.2); Mean Corpuscular HGB Conc 30.1 GM/DL (32-36); Mean Corpuscular Hemoglobin 25 PG (27-34); Mean Corpuscular Volume 81.9 FL (87-102); Mean Platelet Volume 10.7 FL (9.6-12.0); Monocytes # 0.7 10*3/uL (0.11-0.8); Monocytes % 10.5 % (1.7-12.7); Neutrophils # 4.4 10*3/uL (1.4-7.4); Neutrophils % 65.8 % (38.7-73.9); Platelet Count 279 T/CUMM (130-400); Red Blood Count 4.58 MC/CUMM (3.8-5.5); White Blood Count 6.7 T/CUMM (4-12)
[2018-11-24 03:03] LABS: Albumin 3.7 G/DL (3.4-5.0); Bilirubin,Total 0.7 MG/DL (0.2-1.0); Calcium 8.6 MG/DL (8.5-10.1); Osmolality,Calculated 280.5 MOS/KG (273-304); Potassium 3.8 MMOL/L (3.5-5.1); Total Protein 7.3 G/DL (6.4-8.3)
[2018-11-24] MEDS: dilTIAZem Drip 125 MG/125 ML PREMIX IV SCH (06:40)
[2018-11-24] MEDS ORDERED: APIXABAN 5 MG TABLET PO SCH (09:00)
[2018-11-24] MEDS ORDERED: METOPROLOL TARTRATE 25 MG TABLET PO SCH (09:00)
[2018-11-24] MEDS: DILTIAZEM CD 120 MG CAPSULE PO SCH (10:19)
[2018-11-24] MEDS: ASPIRIN EC 81 MG TABLET PO SCH (10:19)
[2018-11-24] MEDS: PERMETHRIN 5% CREAM 60 GM TUBE TOP SCH (10:20)
[2018-11-24] MEDS: PANTOPRAZOLE 40 MG TABLET PO SCH (10:20)
[2018-11-24] MEDS ORDERED: METOPROLOL SUCCINATE XL 50 MG TABLET PO ONE (10:51)
[2018-11-24] MEDS ORDERED: LEVOFLOXACIN INJ 500 MG in PREMIX 1 EACH IV ONE (16:00)
[2018-11-24] MEDS: METOPROLOL SUCCINATE XL 25 MG TABLET PO SCH (22:36)
[2018-11-24] MEDS: HYDROCORTISONE 0.5% CREAM 28.35 GM TUBE TOP PRN (22:38)
[2018-11-25] MEDS: dilTIAZem Drip 125 MG/125 ML PREMIX IV SCH (03:43)
[2018-11-25 08:38] LABS: Calcium 8.7 MG/DL (8.5-10.1); Osmolality,Calculated 280.5 MOS/KG (273-304)
[2018-11-25 08:42] LABS: Basophils % 0.7 % (0.0-0.8); Eosinophils # 0.2 10*3/uL (0.0-0.87); Eosinophils % 3.7 % (0.00-10.9); Hematocrit 39.9 VOL% (35.7-47.0); Immature Granulocytes % 0.3 %; Immature Granulocytes Absolute 0.02 #; Lymphocytes # 0.9 10*3/uL (1.4-4.0); Lymphocytes % 15.6 % (21.3-54.2); Mean Corpuscular HGB Conc 30.1 GM/DL (32-36); Mean Corpuscular Hemoglobin 25 PG (27-34); Mean Corpuscular Volume 81.8 FL (87-102); Mean Platelet Volume 11.2 FL (9.6-12.0); Monocytes # 0.7 10*3/uL (0.11-0.8); Monocytes % 11.8 % (1.7-12.7); Neutrophils # 4.1 10*3/uL (1.4-7.4); Neutrophils % 67.9 % (38.7-73.9); Platelet Count 281 T/CUMM (130-400); Red Blood Count 4.88 MC/CUMM (3.8-5.5); Red Cell Distribution Width 16.1 % (9.3-17.3)
[2018-11-25] MEDS: ASPIRIN EC 81 MG TABLET PO SCH (09:22)
[2018-11-25] MEDS: DILTIAZEM CD 120 MG CAPSULE PO SCH (09:22)
[2018-11-25] MEDS: METOPROLOL SUCCINATE XL 25 MG TABLET PO SCH (09:23)
[2018-11-25] MEDS: PANTOPRAZOLE 40 MG TABLET PO SCH (09:23)
[2018-11-25] MEDS: PERMETHRIN 5% CREAM 60 GM TUBE TOP SCH (09:25)
[2018-11-25] MEDS ORDERED: RIVAROXABAN 20 MG TABLET PO SCH (10:00)
[2018-11-25] MEDS ORDERED: VANCOMYCIN INJ 1,000 MG in SODIUM CHLORIDE 0.9% 250 ML IV ONE (14:46)
[2018-11-25] MEDS ORDERED: LEVOFLOXACIN INJ 250 MG in PREMIX 1 EACH IV SCH (16:00)
[2018-11-25 16:11] VITALS: BP 138/98
== END 2018-11-25 18:32 | disposition home or self-care (01) | DRG 309 ==
LOC: N.EDINP 11:10 → N.ED 11:10 → SUATTDRO 14:43 → N.TELES 17:50
PROVIDERS: ADMIT Phlebology; ATTEND Internal Medicine

== ENCOUNTER 2019-02-13 09:20 | Observation (INO) ==
[2019-02-13] MEDS ORDERED: FUROSEMIDE 100 MG/10 ML VIAL IV STA (09:44)
[2019-02-13] MEDS ORDERED: DILTIAZEM 50 MG/10 ML VIAL IV STA (09:47)
[2019-02-13] MEDS ORDERED: DILTIAZEM INJ 100 MG in SODIUM CHLORIDE 0.9% 100 ML IV SCH (10:00)
[2019-02-13] MEDS ORDERED: dilTIAZem Drip 125 MG/125 ML PREMIX IV SCH (10:00)
[2019-02-13] MEDS ORDERED: FUROSEMIDE 40 MG/4 ML VIAL ONE (10:15)
[2019-02-13 10:21] LABS: Basophils % 0.5 % (0.0-0.8); Eosinophils % 0.6 % (0.00-10.9); Immature Granulocytes % 0.3 %; Immature Granulocytes Absolute 0.02 #; Lymphocytes # 0.6 10*3/uL (1.4-4.0); Lymphocytes % 9.3 % (21.3-54.2); Mean Corpuscular HGB Conc 28.4 GM/DL (32-36); Mean Corpuscular Volume 78.8 FL (87-102); Mean Platelet Volume 11.6 FL (9.6-12.0); Monocytes % 7.6 % (1.7-12.7); Neutrophils % 81.7 % (38.7-73.9); Platelet Count 279 T/CUMM (130-400); Red Blood Count 4.82 MC/CUMM (3.8-5.5); Red Cell Distribution Width 16.7 % (9.3-17.3); White Blood Count 6.2 T/CUMM (4-12)
[2019-02-13 10:27] LABS: Hemoglobin 10.8 GM/DL (12.0-16.0)
[2019-02-13 10:41] LABS: Hypochromasia 1+; Ovalocytes Slight; Platelet Estimate Adequate
[2019-02-13 10:48] LABS: Albumin 3.6 G/DL (3.4-5.0); Bilirubin,Total 0.6 MG/DL (0.2-1.0); Calcium 8.5 MG/DL (8.5-10.1); Osmolality,Calculated 279.8 MOS/KG (273-304)
[2019-02-13 10:58] LABS: Apearance,Urine CLEAR (Clear); Bacteria,Urine Occasional /HPF (Few); Bilirubin,Urine Negative (Negative); Blood, Urine Small mg/dL (Negative); Glucose,Urine (UA) Negative (Negative); Ketones,Urine Negative (Negative); Mucus,Urine Occasional /LPF (Occasional); Nitrite,Urine Negative (Negative); Protein,Urine 30 MG/DL; RBC,Urine 1 /HPF (0-4); Squamous Epithelial Cell,Urine Occasional /HPF (0-10); Urine Color Straw (Yellow); Urine Specific Gravity 1.006 (1.001-1.035); Urine Urobilinogen < 2.0 EU/DL (0.2-1.0); WBC,Urine 1 /HPF (0-6)
[2019-02-13] MEDS ORDERED: METOPROLOL TARTRATE 5 MG/5 ML VIAL IV STA ×2 (11:31→13:31)
[2019-02-13] MEDS ORDERED: PROMETHAZINE 25 MG/1 ML VIAL IM PRN (12:37)
[2019-02-13] MEDS ORDERED: ACETAMINOPHEN 325 MG TABLET PO PRN (12:37)
[2019-02-13] MEDS ORDERED: traZODone 50 MG TABLET PO PRN (12:37)
[2019-02-13] MEDS ORDERED: ONDANSETRON 4 MG/2 ML VIAL IV PRN (12:37)
[2019-02-13] MEDS ORDERED: POTASSIUM CHLORIDE 10 MEQ TABLET PO PRN (12:41)
[2019-02-13] MEDS ORDERED: cefTRIAXone 1,000 MG in SYRINGE 1 EACH IV SCH (13:00)
[2019-02-13] MEDS ORDERED: ENOXAPARIN 40 MG/0.4 ML SYRINGE SUBCUT SCH (13:00)
[2019-02-13] MEDS ORDERED: PERMETHRIN 5% CREAM 60 GM TUBE TOP SCH (13:30)
[2019-02-13] MEDS ORDERED: IVERMECTIN 3 MG TABLET PO ONE (15:00)
[2019-02-13] MEDS: DILTIAZEM 30 MG TABLET PO SCH ×2 (16:52→21:05)
[2019-02-13] MEDS: PANTOPRAZOLE 40 MG TABLET PO SCH (16:52)
[2019-02-13] MEDS: ASPIRIN EC 81 MG TABLET PO SCH (16:53)
[2019-02-13] MEDS: METOPROLOL SUCCINATE XL 25 MG TABLET PO SCH (16:53)
[2019-02-13] MEDS: CLORAZEPATE 3.75 MG TABLET PO SCH ×2 (16:53→21:12)
[2019-02-13] MEDS: PERMETHRIN 5% CREAM 60 GM TUBE TOP SCH (16:54)
[2019-02-13] MEDS: hydrOXYzine HCL 10 MG TABLET PO SCH ×2 (16:55→21:11)
[2019-02-13] MEDS: FUROSEMIDE 40 MG/4 ML VIAL IV SCH (17:16)
[2019-02-13 18:04] LABS: Barbiturates Screen,Urine Negative (Negative); Benzodiazepines Screen,Urine Negative (Negative); Cannabinoid Screen,Urine Negative (Negative); Opiate Screen,Urine Negative (Negative); Phencyclidine Screen,Urine Negative (Negative)
[2019-02-14] MEDS ORDERED: ALPRAZolam 0.5 MG TABLET PO ONE (04:44)
[2019-02-14 07:25] LABS: Basophils % 0.5 % (0.0-0.8); Eosinophils # 0.2 10*3/uL (0.0-0.87); Eosinophils % 3.4 % (0.00-10.9); Hematocrit 38.9 VOL% (35.7-47.0); Immature Granulocytes % 0.4 %; Immature Granulocytes Absolute 0.02 #; Lymphocytes # 0.9 10*3/uL (1.4-4.0); Lymphocytes % 16.3 % (21.3-54.2); Mean Platelet Volume 11.2 FL (9.6-12.0); Monocytes % 13.4 % (1.7-12.7); Platelet Count 269 T/CUMM (130-400); Red Blood Count 5.05 MC/CUMM (3.8-5.5); Red Cell Distribution Width 16.7 % (9.3-17.3); White Blood Count 5.5 T/CUMM (4-12)
[2019-02-14 07:26] LABS: Hemoglobin 11.3 GM/DL (12.0-16.0)
[2019-02-14 07:33] LABS: Hypochromasia 1+; Ovalocytes Slight; Platelet Estimate Adequate
[2019-02-14 07:39] LABS: Albumin 3.1 G/DL (3.4-5.0); Bilirubin,Total 0.7 MG/DL (0.2-1.0); Calcium 8.9 MG/DL (8.5-10.1); Osmolality,Calculated 279.7 MOS/KG (273-304); Risk Ratio 4.83; Total Protein 6.9 G/DL (6.4-8.3)
[2019-02-14] MEDS ORDERED: RIVAROXABAN 20 MG TABLET PO SCH (08:00)
[2019-02-14] MEDS ORDERED: POTASSIUM CHLORIDE 20 MEQ TABLET PO ONE (08:06)
[2019-02-14] MEDS ORDERED: DILTIAZEM CD 120 MG CAPSULE PO SCH (09:00)
[2019-02-14] MEDS: PANTOPRAZOLE 40 MG TABLET PO SCH (09:37)
[2019-02-14] MEDS: CLORAZEPATE 3.75 MG TABLET PO SCH (09:37)
[2019-02-14] MEDS: ASPIRIN EC 81 MG TABLET PO SCH (09:37)
[2019-02-14] MEDS: METOPROLOL SUCCINATE XL 25 MG TABLET PO SCH (09:38)
[2019-02-14] MEDS: hydrOXYzine HCL 10 MG TABLET PO SCH (09:38)
[2019-02-14] MEDS: PERMETHRIN 5% CREAM 60 GM TUBE TOP SCH (09:39)
[2019-02-14] MEDS: FUROSEMIDE 40 MG/4 ML VIAL IV SCH (09:40)
[2019-02-14 12:05] VITALS: BP 117/78
== END 2019-02-14 13:00 | disposition home or self-care (01) ==
LOC: N.ED 09:20 → INTOOBSV 12:37 → N.EDINP 12:37 → N.TELEN 13:20
PROVIDERS: ADMIT Internal Medicine; ATTEND Internal Medicine

== ENCOUNTER 2022-08-07 17:30 | Inpatient (IN) ==
[2022-08-07 19:58] LABS: Basophils % 0.6 % (0.0-0.8); Eosinophils # 0.1 10*3/uL (0.0-0.87); Eosinophils % 1.6 % (0.00-10.9); Hematocrit 31.1 VOL% (35.7-47.0); Hemoglobin 9.4 GM/DL (12.0-16.0); Immature Granulocytes % 0.6 %; Immature Granulocytes Absolute 0.04 #; Lymphocytes # 0.8 10*3/uL (1.4-4.0); Lymphocytes % 11.5 % (21.3-54.2); Mean Corpuscular HGB Conc 30.2 GM/DL (32-36); Mean Corpuscular Volume 84.3 FL (87-102); Mean Platelet Volume 9.6 FL (9.6-12.0); Monocytes # 0.6 10*3/uL (0.11-0.8); Monocytes % 9.2 % (1.7-12.7); Neutrophils % 76.5 % (38.7-73.9); Platelet Count 317 T/CUMM (130-400); Red Blood Count 3.69 MC/CUMM (3.8-5.5); Red Cell Distribution Width 18.4 % (9.3-17.3); White Blood Count 6.9 T/CUMM (4-12)
[2022-08-07 20:24] LABS: Albumin 3.8 G/DL (3.4-5.0); Bilirubin,Total 0.4 MG/DL (0.20-1.00); Calcium 9.5 MG/DL (8.5-10.1); Osmolality,Calculated 290.7 MOS/KG (273-304); Potassium 4.3 MMOL/L (3.5-5.1); Total Protein 7.4 G/DL (6.4-8.2)
[2022-08-07 20:39] LABS: Bilirubin,Urine Negative (Negative); Blood, Urine Negative (Negative); Glucose,Urine (UA) 100 mg/dL (Negative); Ketones,Urine Negative (Negative); Nitrite,Urine Negative (Negative); Protein,Urine Negative (Negative); Urine Appearance Clear (Clear); Urine Color Yellow (Yellow); Urine Specific Gravity 1.015 (1.001-1.035); Urine Urobilinogen 0.2 eU/dL (<2.0); Urine pH 5.5 (4.5-8.0)
[2022-08-07 20:45] LABS: Hyaline Casts,Urine 7 /LPF (0-3); Mucus,Urine Occasional /LPF (Occasional); Squamous Epithelial Cell,Urine Occasional /HPF (0-10)
[2022-08-07 20:53] LABS: Barbiturates Screen,Urine Negative (Negative); Benzodiazepines Screen,Urine Negative (Negative); Cannabinoid Screen,Urine Negative (Negative); Opiate Screen,Urine Negative (Negative); Phencyclidine Screen,Urine Negative (Negative)
[2022-08-07] MEDS ORDERED: diphenhydrAMINE 50 MG/1 ML VIAL IV STA (21:10)
[2022-08-07] MEDS ORDERED: diphenhydrAMINE 50 MG/1 ML VIAL ONE (21:10)
[2022-08-07] MEDS ORDERED: DILTIAZEM 25 MG/5 ML VIAL IV STA (21:14)
[2022-08-07] MEDS ORDERED: ACETAMINOPHEN 325 MG TABLET PO PRN (21:49)
[2022-08-07] MEDS ORDERED: ONDANSETRON 4 MG/2 ML VIAL IV PRN (21:49)
[2022-08-07] MEDS ORDERED: LACTULOSE 20 GM/30 ML UDCUP PO STA (21:49)
[2022-08-07] MEDS ORDERED: hydrALAZINE 20 MG/1 ML VIAL IV PRN (21:49)
[2022-08-07] MEDS ORDERED: METOPROLOL TARTRATE 5 MG/5 ML VIAL IV STA (21:49)
[2022-08-07] MEDS ORDERED: GLUCAGON 1 MG VIAL IM PRN (21:59)
[2022-08-07] MEDS ORDERED: DEXTROSE 10% 250 ML BAG IV PRN (22:22)
[2022-08-07] MEDS ORDERED: DILTIAZEM INJ 100 MG in SODIUM CHLORIDE 0.9% 100 ML IV SCH (22:30)
[2022-08-08] MEDS ORDERED: ASPIRIN 325 MG TABLET PO ONE (01:30)
[2022-08-08 05:17] LABS: Basophils # 0.1 10*3/uL (0.0-0.2); Basophils % 0.7 % (0.0-0.8); Eosinophils # 0.1 10*3/uL (0.0-0.87); Eosinophils % 1.8 % (0.00-10.9); Hematocrit 29.9 VOL% (35.7-47.0); Hemoglobin 9.1 GM/DL (12.0-16.0); Immature Granulocytes % 0.6 %; Immature Granulocytes Absolute 0.04 #; Lymphocytes # 0.8 10*3/uL (1.4-4.0); Lymphocytes % 11.7 % (21.3-54.2); Mean Corpuscular HGB Conc 30.4 GM/DL (32-36); Mean Corpuscular Volume 84.5 FL (87-102); Mean Platelet Volume 9.7 FL (9.6-12.0); Monocytes # 0.7 10*3/uL (0.11-0.8); Monocytes % 10.9 % (1.7-12.7); Neutrophils % 74.3 % (38.7-73.9); Platelet Count 274 T/CUMM (130-400); Red Blood Count 3.54 MC/CUMM (3.8-5.5); Red Cell Distribution Width 18.1 % (9.3-17.3); White Blood Count 6.7 T/CUMM (4-12)
[2022-08-08] MEDS: diphenhydrAMINE 2% CREAM 28 GM TUBE TOP PRN ×2 (05:34→21:11)
[2022-08-08 05:47] LABS: % Iron Saturation 5.5 % (18-50); Calcium 9.8 MG/DL (8.5-10.1); Ferritin 17.9 ng/mL (8-252); Osmolality,Calculated 291.4 MOS/KG (273-304)
[2022-08-08] MEDS: INSULIN LISPRO 100 UNIT/ML SUBCUT SCH ×3 (08:43→21:10)
[2022-08-08] MEDS ORDERED: PANTOPRAZOLE 40 MG TABLET PO SCH (09:00)
[2022-08-08 10:27] LABS: Risk Ratio 5.2; Thyroid Stimulating Hormone 1.74 uIU/ml (0.358-3.74); VLDL Cholesterol 30.6 MG/DL
[2022-08-08] MEDS: RIVAROXABAN 15 MG TABLET PO SCH (16:37)
[2022-08-08] MEDS: DILTIAZEM CD 120 MG CAPSULE PO SCH (21:10)
[2022-08-08] MEDS: DONEPEZIL 5 MG TABLET PO SCH (21:10)
[2022-08-08] MEDS: traZODone 50 MG TABLET PO SCH (21:10)
[2022-08-09 05:52] LABS: Basophils % 0.6 % (0.0-0.8); Eosinophils # 0.2 10*3/uL (0.0-0.87); Eosinophils % 3.6 % (0.00-10.9); Hematocrit 30.1 VOL% (35.7-47.0); Immature Granulocytes % 0.4 %; Immature Granulocytes Absolute 0.02 #; Lymphocytes # 0.7 10*3/uL (1.4-4.0); Lymphocytes % 13.3 % (21.3-54.2); Mean Corpuscular HGB Conc 29.9 GM/DL (32-36); Mean Platelet Volume 9.8 FL (9.6-12.0); Monocytes # 0.6 10*3/uL (0.11-0.8); Monocytes % 11.8 % (1.7-12.7); Neutrophils % 70.3 % (38.7-73.9); Platelet Count 276 T/CUMM (130-400); Red Cell Distribution Width 18.4 % (9.3-17.3); White Blood Count 5.3 T/CUMM (4-12)
[2022-08-09 06:09] LABS: Calcium 9.2 MG/DL (8.5-10.1); Osmolality,Calculated 288.1 MOS/KG (273-304); Potassium 3.6 MMOL/L (3.5-5.1)
[2022-08-09] MEDS ORDERED: DILTIAZEM CD 120 MG CAPSULE PO SCH (09:00)
[2022-08-09] MEDS ORDERED: METOPROLOL SUCCINATE XL 50 MG TABLET PO SCH (09:00)
[2022-08-09] MEDS: INSULIN LISPRO 100 UNIT/ML SUBCUT SCH ×4 (10:47→21:49)
[2022-08-09] MEDS: DILTIAZEM CD 120 MG CAPSULE PO SCH ×2 (12:20→21:46)
[2022-08-09] MEDS: ASPIRIN CHEW 81 MG TABLET PO SCH (12:20)
[2022-08-09] MEDS: FERROUS SULFATE 325 MG TABLET PO SCH (12:20)
[2022-08-09] MEDS: PANTOPRAZOLE 40 MG TABLET PO SCH (12:20)
[2022-08-09] MEDS: RIVAROXABAN 15 MG TABLET PO SCH (16:54)
[2022-08-09 20:15] LABS: Folate 4.83 NG/ML (5.38-24.0)
[2022-08-09] MEDS: DONEPEZIL 5 MG TABLET PO SCH (21:46)
[2022-08-09] MEDS: traZODone 50 MG TABLET PO SCH (21:46)
[2022-08-09] MEDS: METOPROLOL SUCCINATE XL 50 MG TABLET PO SCH (21:46)
[2022-08-10 05:33] LABS: Basophils % 0.3 % (0.0-0.8); Eosinophils # 0.2 10*3/uL (0.0-0.87); Eosinophils % 3.3 % (0.00-10.9); Hematocrit 28.1 VOL% (35.7-47.0); Hemoglobin 8.4 GM/DL (12.0-16.0); Immature Granulocytes % 0.7 %; Immature Granulocytes Absolute 0.04 #; Lymphocytes # 0.5 10*3/uL (1.4-4.0); Lymphocytes % 7.9 % (21.3-54.2); Mean Corpuscular HGB Conc 29.9 GM/DL (32-36); Mean Corpuscular Volume 85.7 FL (87-102); Mean Platelet Volume 9.8 FL (9.6-12.0); Monocytes # 0.5 10*3/uL (0.11-0.8); Monocytes % 9.3 % (1.7-12.7); Neutrophils % 78.5 % (38.7-73.9); Platelet Count 253 T/CUMM (130-400); Red Blood Count 3.28 MC/CUMM (3.8-5.5); Red Cell Distribution Width 18.5 % (9.3-17.3); White Blood Count 5.7 T/CUMM (4-12)
[2022-08-10 06:11] LABS: Folate 4.74 NG/ML (5.38-24.0); Vitamin B12 299 PG/ML (211-911)
[2022-08-10 06:39] LABS: Sedimentation Rate-Westergren 51 MM/HR (0-30)
[2022-08-10] MEDS: INSULIN LISPRO 100 UNIT/ML SUBCUT SCH ×4 (09:17→21:04)
[2022-08-10] MEDS: PANTOPRAZOLE 40 MG TABLET PO SCH (09:19)
[2022-08-10] MEDS: FERROUS SULFATE 325 MG TABLET PO SCH (09:19)
[2022-08-10] MEDS: METOPROLOL SUCCINATE XL 50 MG TABLET PO SCH (09:19)
[2022-08-10] MEDS: ASPIRIN CHEW 81 MG TABLET PO SCH (09:19)
[2022-08-10] MEDS: DILTIAZEM CD 120 MG CAPSULE PO SCH ×2 (09:20→20:55)
[2022-08-10] MEDS: FOLIC ACID 1 MG TABLET PO SCH (13:45)
[2022-08-10] MEDS: CYANOCOBALAMIN 500 MCG TABLET PO SCH (13:45)
[2022-08-10] MEDS: RIVAROXABAN 15 MG TABLET PO SCH (16:35)
[2022-08-10] MEDS: DONEPEZIL 5 MG TABLET PO SCH (20:55)
[2022-08-10] MEDS: METOPROLOL SUCCINATE XL 25 MG TABLET PO SCH (20:55)
[2022-08-10] MEDS: traZODone 50 MG TABLET PO SCH (20:55)
[2022-08-11] MEDS: INSULIN LISPRO 100 UNIT/ML SUBCUT SCH ×4 (09:55→21:09)
[2022-08-11] MEDS: FERROUS SULFATE 325 MG TABLET PO SCH (10:19)
[2022-08-11] MEDS: PANTOPRAZOLE 40 MG TABLET PO SCH (10:20)
[2022-08-11] MEDS: METOPROLOL SUCCINATE XL 25 MG TABLET PO SCH ×2 (10:20→21:09)
[2022-08-11] MEDS: ASPIRIN CHEW 81 MG TABLET PO SCH (10:20)
[2022-08-11] MEDS: FOLIC ACID 1 MG TABLET PO SCH (10:20)
[2022-08-11] MEDS: CYANOCOBALAMIN 500 MCG TABLET PO SCH (10:20)
[2022-08-11] MEDS: DILTIAZEM CD 120 MG CAPSULE PO SCH (10:31)
[2022-08-11] MEDS: RIVAROXABAN 15 MG TABLET PO SCH (16:51)
[2022-08-11] MEDS: traZODone 50 MG TABLET PO SCH (21:08)
[2022-08-11] MEDS: DONEPEZIL 5 MG TABLET PO SCH (21:09)
[2022-08-12 05:40] LABS: Basophils % 0.6 % (0.0-0.8); Eosinophils # 0.2 10*3/uL (0.0-0.87); Eosinophils % 3.5 % (0.00-10.9); Hemoglobin 8.5 GM/DL (12.0-16.0); Immature Granulocytes % 0.6 %; Immature Granulocytes Absolute 0.03 #; Lymphocytes # 0.7 10*3/uL (1.4-4.0); Lymphocytes % 14.3 % (21.3-54.2); Mean Corpuscular HGB Conc 29.3 GM/DL (32-36); Mean Corpuscular Volume 88.1 FL (87-102); Mean Platelet Volume 9.8 FL (9.6-12.0); Monocytes # 0.7 10*3/uL (0.11-0.8); Monocytes % 12.9 % (1.7-12.7); Neutrophils % 68.1 % (38.7-73.9); Platelet Count 261 T/CUMM (130-400); Red Blood Count 3.29 MC/CUMM (3.8-5.5); Red Cell Distribution Width 18.9 % (9.3-17.3); White Blood Count 5.1 T/CUMM (4-12)
[2022-08-12 06:30] LABS: Calcium 9.3 MG/DL (8.5-10.1); Osmolality,Calculated 290.8 MOS/KG (273-304)
[2022-08-12] MEDS: ASPIRIN CHEW 81 MG TABLET PO SCH (09:21)
[2022-08-12] MEDS: FOLIC ACID 1 MG TABLET PO SCH (09:22)
[2022-08-12] MEDS: CYANOCOBALAMIN 500 MCG TABLET PO SCH (09:22)
[2022-08-12] MEDS: DILTIAZEM CD 120 MG CAPSULE PO SCH (09:22)
[2022-08-12] MEDS: FERROUS SULFATE 325 MG TABLET PO SCH (09:22)
[2022-08-12] MEDS: INSULIN LISPRO 100 UNIT/ML SUBCUT SCH ×4 (09:22→21:41)
[2022-08-12] MEDS: METOPROLOL SUCCINATE XL 25 MG TABLET PO SCH ×2 (09:22→21:41)
[2022-08-12] MEDS: PANTOPRAZOLE 40 MG TABLET PO SCH (09:22)
[2022-08-12 10:41] LABS: Hemoglobin A1 (Alkaline) 97.7 % (96.5-98.5); Hemoglobin A2 (Alkaline) 2.3 % (1.5-3.5)
[2022-08-12] MEDS: RIVAROXABAN 15 MG TABLET PO SCH (17:56)
[2022-08-12] MEDS ORDERED: OLANZapine 10 MG VIAL IM PRN (18:22)
[2022-08-12] MEDS: traZODone 50 MG TABLET PO SCH (21:41)
[2022-08-12] MEDS: DONEPEZIL 5 MG TABLET PO SCH (21:41)
[2022-08-13 04:40] LABS: Mucus,Urine Occasional /LPF (Occasional); RBC,Urine <1 /HPF (0-4); Squamous Epithelial Cell,Urine Occasional /HPF (0-10); Urine Appearance Clear (Clear); Urine Color Yellow (Yellow)
[2022-08-13 04:41] LABS: Bilirubin,Urine Negative (Negative); Blood, Urine Negative (Negative); Glucose,Urine (UA) 250 mg/dL (Negative); Ketones,Urine Negative (Negative); Nitrite,Urine Negative (Negative); Protein,Urine Trace mg/dL (Negative); Urine Specific Gravity 1.025 (1.001-1.035); Urine pH 5.5 (4.5-8.0)
[2022-08-13 06:52] LABS: Basophils % 0.4 % (0.0-0.8); Eosinophils # 0.2 10*3/uL (0.0-0.87); Eosinophils % 3.4 % (0.00-10.9); Hematocrit 31.8 VOL% (35.7-47.0); Hemoglobin 9.4 GM/DL (12.0-16.0); Immature Granulocytes % 0.5 %; Immature Granulocytes Absolute 0.03 #; Lymphocytes # 0.9 10*3/uL (1.4-4.0); Lymphocytes % 16.6 % (21.3-54.2); Mean Corpuscular HGB Conc 29.6 GM/DL (32-36); Mean Corpuscular Volume 88.8 FL (87-102); Mean Platelet Volume 9.7 FL (9.6-12.0); Monocytes # 0.7 10*3/uL (0.11-0.8); Monocytes % 12.5 % (1.7-12.7); Neutrophils % 66.6 % (38.7-73.9); Platelet Count 306 T/CUMM (130-400); Red Blood Count 3.58 MC/CUMM (3.8-5.5); Red Cell Distribution Width 19.2 % (9.3-17.3); White Blood Count 5.7 T/CUMM (4-12)
[2022-08-13 07:14] LABS: Calcium 9.3 MG/DL (8.5-10.1); Osmolality,Calculated 283.4 MOS/KG (273-304); Potassium 4.3 MMOL/L (3.5-5.1)
[2022-08-13] MEDS: DILTIAZEM CD 120 MG CAPSULE PO SCH (09:50)
[2022-08-13] MEDS: METOPROLOL SUCCINATE XL 25 MG TABLET PO SCH ×2 (09:50→21:57)
[2022-08-13] MEDS: FOLIC ACID 1 MG TABLET PO SCH (09:50)
[2022-08-13] MEDS: INSULIN LISPRO 100 UNIT/ML SUBCUT SCH ×4 (09:50→21:58)
[2022-08-13] MEDS: PANTOPRAZOLE 40 MG TABLET PO SCH (09:50)
[2022-08-13] MEDS: ASPIRIN CHEW 81 MG TABLET PO SCH (09:50)
[2022-08-13] MEDS: FERROUS SULFATE 325 MG TABLET PO SCH (09:50)
[2022-08-13] MEDS: CYANOCOBALAMIN 500 MCG TABLET PO SCH (09:50)
[2022-08-13] MEDS: RIVAROXABAN 15 MG TABLET PO SCH (17:54)
[2022-08-13] MEDS: DONEPEZIL 5 MG TABLET PO SCH (21:57)
[2022-08-13] MEDS: traZODone 50 MG TABLET PO SCH (21:57)
[2022-08-14 04:55] LABS: Basophils % 0.6 % (0.0-0.8); Eosinophils # 0.2 10*3/uL (0.0-0.87); Eosinophils % 3.8 % (0.00-10.9); Hematocrit 28.7 VOL% (35.7-47.0); Hemoglobin 8.6 GM/DL (12.0-16.0); Immature Granulocytes % 0.4 %; Immature Granulocytes Absolute 0.02 #; Lymphocytes # 0.8 10*3/uL (1.4-4.0); Lymphocytes % 15.7 % (21.3-54.2); Mean Platelet Volume 9.7 FL (9.6-12.0); Monocytes # 0.7 10*3/uL (0.11-0.8); Monocytes % 13.7 % (1.7-12.7); Neutrophils % 65.8 % (38.7-73.9); Platelet Count 262 T/CUMM (130-400); Red Blood Count 3.26 MC/CUMM (3.8-5.5); Red Cell Distribution Width 19.3 % (9.3-17.3)
[2022-08-14 05:25] LABS: Calcium 9.2 MG/DL (8.5-10.1); Osmolality,Calculated 288.8 MOS/KG (273-304)
[2022-08-14] MEDS: ASPIRIN CHEW 81 MG TABLET PO SCH (08:47)
[2022-08-14] MEDS: FOLIC ACID 1 MG TABLET PO SCH (08:47)
[2022-08-14] MEDS: FERROUS SULFATE 325 MG TABLET PO SCH (08:47)
[2022-08-14] MEDS: PANTOPRAZOLE 40 MG TABLET PO SCH (08:47)
[2022-08-14] MEDS: CYANOCOBALAMIN 500 MCG TABLET PO SCH (08:47)
[2022-08-14] MEDS: DILTIAZEM CD 120 MG CAPSULE PO SCH (08:48)
[2022-08-14] MEDS: METOPROLOL SUCCINATE XL 25 MG TABLET PO SCH (08:48)
[2022-08-14] MEDS: INSULIN LISPRO 100 UNIT/ML SUBCUT SCH ×2 (09:10→11:44)
[2022-08-14 11:59] VITALS: BP 118/60
== END 2022-08-14 15:54 | disposition home or self-care (01) | DRG 57 ==
LOC: N.ED 17:30 → N.EDINP 17:30 → N.TELEN 23:25 → SUATTDRO 08-08 09:51
PROVIDERS: ADMIT Internal Medicine; ATTEND Hospitalist